=== PATIENT | female | born 1985 | race Caucasian/White ===

== ENCOUNTER 2025-05-10 09:50 | Emergency (ER) | payer OTHER, SELFPAY ==
[2025-05-10 09:50] VITALS: BP 136/94; PULSE 92; RESP 16; TEMP 36.5; O2SAT 100; BMI 36.8
--- NOTE | 2025-05-10 09:59 | EX.ED.GENINJ ---
HPI History of Present Illness Chief Complaint: Laceration Detail of Chief Complaint: Flap type laceration volar surface right thumb Informant: patient Onset/Context/Timing Onset: Today and Hours Mechanism/Context: Blunt Injury and Incised (Cut on a piece of metal.) Location of pain/injuries: Right hand Quality of Pain: - (None) Location: Volar surface right thumb distal IP joint Current Severity: Mild Maximum Severity: Moderate Worsened by: Injury Relieved by: Dressing and pressure Associated Symptoms Associated Symptoms: Negative for Parasthesias, Weakness, Loss of function or Inability to ambulate Narrative Narrative: Patient is a 39-year-old [id number] woman who presents with laceration to the volar surface of her right thumb. She denies paresthesia, anesthesia or motor. Review of records indicates she is on no antithrombotic or anticoagulant. She is on no immunosuppressive meds. Prior similar symptoms: No Recent Illness/Hospitalization: No PFSH PFSH Allergy/AdvReac Type Severity Reaction Status Date / Time acetaminophen (From [facility] Allergy Mild Other Verified 05/10/25 09:52 Complete) caffeine (From [facility] Allergy Mild Other Verified 05/10/25 09:52 Complete) pyrilamine (From [facility] Allergy Mild Other Verified 05/10/25 09:52 Complete) amoxicillin AdvReac Mild Vomiting Verified 05/10/25 09:52 ROS ROS ED Integumentary Reports other Details: HPI narrative ; Denies Abrasions or rash Neurologic Neurologic: Denies paresthesias Hematologic/Lymphatic Hematologic/Lymphatic: Denies easy bleeding or easy bruising EXAM Physical Exam Const Vital Signs: 05/10/25 09:50 Temperature 97.7 F L Temperature Source Oral Pulse Rate 92 Respiratory Rate 16 Blood Pressure 136/94 H Blood Pressure Mean 108 Pulse Ox 100 Oxygen Delivery Method Room Air Positive well nourished and well developed Constitutional Narrative: BMI is 36.9. General Appearance ED: well developed HEENT HEENT Narrative: Head is normocephalic. atraumatic Eyes PERRL and EOMs intact bilaterally Resp normal respiratory effort Cardio regular rhythm Rate: regular rate Extremity full ROM; Negative for normal to inspection Extremity Narrative: Patient has extension and flexion at the IP joint of the thumb. Capillary fill is normal. There is no subungual hematoma noted. She has a flap type laceration volar surface right thumb distal to the IP joint. Neuro oriented x3, CN's II-XII intact bilaterally, no focal motor deficits and no sensory deficits noted Psych mental status grossly normal and thought process normal Skin Skin Narrative: Described under the extremity portion of the EMR PROC Procedures Other Procedures Procedure(s): Flap type laceration right thumb. Laceration is 2.0 cm x 0.5 cm x 2.5 cm x 0.2 cm. Total length is 5.2 cm Patient was not sized by digital block. 1% lidocaine without epinephrine was used. Total of 3 cc was infiltrated. Once patient had no sensation the wound was irrigated with 125 cc of normal saline. Simple interrupted sutures placed. A total of 8 stitches placed. Used 5-0 Ethilon. MDM MDM MDM Narrative Medical decision making narrative: Patient has a laceration of the will require repair. There is no indication for imaging. Will anesthetized with 1% lidocaine without epi by digital block. Once anesthesia has been achieved well suture in place using 5-0 Ethilon. Discharge Plan Triage Chief Complaint: Laceration ED Provider: Silvestre Banuelos Dx/Rx/DC Orders Clinical Impression: Laceration of right thumb, Elevated blood pressure reading Instructions: ED Laceration, Hand: All Closures Primary Care Provider: Care Physician,No Primary Referrals: Care Physician,No Primary [Primary Care Provider] - Doctor,Your [Non-Staff] - 10 Day for suture removal Activity Restrictions/Additional Instructions: 1. Keep wound clean and dry for the next 48 to 72 hours. 2. Apply bacitracin ointment twice a day. 3. If there is any evidence of infection have the wound assessed. 4. Since you are not from this area recommend follow-up with the doctor that you know or urgent care to have sutures removed in 10 days Print Language: Macanese Disposition Disposition: Home, Self Care
[2025-05-10] MEDS: Lidocaine 1% (20 ml mdv) 20 ML Vial INFILT (10:17)
[2025-05-10 11:39] VITALS: BP 121/79; PULSE 84; RESP 16; TEMP 36.6; O2SAT 100
== END 2025-05-10 11:40 | disposition home or self-care (01) ==
PROVIDERS: Emergency Provider Emergency Medicine; Visit Provider Emergency Medicine
DX: S61.011A Laceration without foreign body of right thumb without damage to nail, initial encounter (principal); R03.0 Elevated blood-pressure reading, without diagnosis of hypertension; W26.8XXA Contact with other sharp object(s), not elsewhere classified, initial encounter
CPT/HCPCS: 12002; 99282